=== PATIENT | male | born 1975 | race Caucasian/White ===

== ENCOUNTER → 2016-11-19 | Outpatient (CLI) | payer BC ==
--- NOTE | 2016-11-19 16:00 | RAD ---
3 views right foot 11/19/2016 2:00 AM Indication: RIGHT 5TH TOE INJURY X 1 1/2 WKS, FELL DOWN STEPS Comparison: None Findings: There is a subtle horizontal lucency extending through the base of the fifth proximal phalanx consistent with a nondisplaced fracture. Correlate with point tenderness. No dislocation is seen. Overlying soft tissue edema appears to be present. Impression: Nondisplaced fracture at the base of the fifth proximal phalanx
== END | disposition home or self-care (01) ==
LOC: DXRADRC 14:52
PROVIDERS: ATTEND Physician Assistant
DX: S92.514A Nondisplaced fracture of proximal phalanx of right lesser toe(s), initial encounter for closed fracture (principal); W19.XXXA Unspecified fall, initial encounter; Y93.89 Activity, other specified; Y92.89 Other specified places as the place of occurrence of the external cause; Y99.8 Other external cause status
CPT/HCPCS: 73660

== ENCOUNTER 2020-01-31 19:41 | Emergency (ER) | payer BC, OTHER ==
[~2020-01-31] VITALS: Ht 180.3 cm; Wt 114.6 kg
[2020-01-31 21:10] VITALS: BP 139/63
--- NOTE | 2020-01-31 21:10 | PHYS DOC ---
Past History Past Medical History: Anxiety (RADHA BURROWS APRN) Past Surgical History: Other Additional Past Surgical Histo: LEFT KNEE (RADHA BURROWS APRN) Alcohol Use: None (RADHA BURROWS APRN) Adult General Chief Complaint Chief Complaint: ANXIETY/PANIC ATTACK HPI HPI Patient is a 44-year-old male who presents emergency department with concerns of an anxiety attack he had 1 hour ago which produced a fast heart rate. Patient states that he had a recent break-up of a 4-year relationship. Patient states that this anxiety panic attack is most likely related to this break-up. Patient states that he had an anxiety and panic attack years ago however is not treated by any physician nor does he take any medications nor does he feel like he has needed to up until this point. Patient states that he has a [id number] history of smoking cigarettes and has quit 6 months ago, currently vapes for the past 6 months. Patient denies illicit drug use stating that he smoked some marijuana back in high school however does not smoke any marijuana denies any methamphetamine use denies any cocaine use states he is an occasional drinker however has not had any alcohol for quite some time. Patient states that he feels his heart beating really fast, he did denies any chest pains or shortness of breath or chest discomfort. Patient denies any fever chills, nasal congestion, cough, shortness of breath, abdominal pains, abdominal symptoms, urinary symptoms, back pains or pain in his joints. Patient denies any skin rashes, headaches, focal weaknesses or sensory changes. Patient denies any increased thirst or increased urination, denies swelling of his glands, denies homicidal or suicidal ideation. (RADHA BURROWS APRN) Review of Systems Review of Systems Constitutional: Denies fever or chills Eyes: Denies change in visual acuity, redness, or eye pain HENT: Denies nasal congestion or sore throat Respiratory: Denies cough or shortness of breath Cardiovascular: Denies chest pains, however complains of rapid heart rate just prior to arrival that resolved upon arrival to the emergency department today. GI: Denies abdominal pain, nausea, vomiting, bloody stools or diarrhea : Denies dysuria or hematuria Musculoskeletal: Denies back pain or joint pain Integument: Denies rash or skin lesions Neurologic: Denies headache, focal weakness or sensory changes Endocrine: Denies polyuria or polydipsia Psychiatric: Denies homicidal or suicidal ideations, complained of anxiety attack with possibly some depression related to a recent break-up of a 4-year relationship. All other systems were reviewed and found to be within normal limits, except as documented in this note. (RADHA BURROWS APRN) Current Medications Current Medications Patient denies taking medications at home. (RADHA BURROWS APRN) Allergies Allergies Allergies Coded Allergies Type Severity Reaction Last Updated Verified No Known Drug Allergies 01/31/20 No (RADHA BURROWS APRN) Physical Exam Physical Exam Constitutional: Well developed, well nourished, no acute distress, non-toxic appearance. HENT: Normocephalic, atraumatic, bilateral external ears normal, oropharynx moist, no oral exudates, nose normal. Eyes: PERRLA, EOMI, conjunctiva normal, no discharge. Neck: Normal range of motion, no tenderness, supple, no stridor. Cardiovascular:Heart rate regular rhythm, no murmur, heart sounds S1-S2 to auscultation. Lungs & Thorax: Bilateral breath sounds clear to auscultation all lung ball. Abdomen: Bowel sounds normal, soft, no tenderness, no masses, no pulsatile masses. Skin: Warm, dry, no erythema, no rash. Back: No tenderness, no CVA tenderness. Extremities: No tenderness, no cyanosis, no clubbing, ROM intact, no edema. Neurologic: Alert and oriented X 3, normal motor function, normal sensory fu nction, no focal deficits noted. Psychologic: Affect normal, judgement normal, mood normal. (RADHA BURROWS APRN) Current Patient Data Vital Signs Vital Signs Date Time Temp Pulse Resp B/P (MAP) Pulse Ox O2 Delivery O2 Flow Rate FiO2 01/31/20 19:50 97.9 87 20 147/81 (103) 98 Room Air Lab Results Laboratory Tests Test 01/31/20 20:08 Troponin I Quantitative < 0.017 ng/mL (0-0.055) (RADHA BURROWS APRN) EKG EKG EKG performed at 2026 by house respiratory therapist, shows heart rate 77 bpm normal sinus rhythm without ectopy, NE interval 0. 182, QTc interval 0.430, no acute STEMI, no acute coronary syndrome, no acute ischemia noted, EKG interpreted by ED attending Dr. Russell. (RADHA BURROWS APRN) Radiology/Procedures Radiology/Procedures [] (RADHA BURROWS APRN) Heart Score Risk Factors: Risk Factors: DM, Current or recent (<one month) smoker, HTN, HLP, family history of CAD, obesity. Risk Scores: Risk Factors: DM, Current or recent (<one month) smoker, HTN, HLP, family history of CAD, obesity. (RADHA BURROWS APRN) Course & Med Decision Making Course & Med Decision Making Pertinent Labs and Imaging studies reviewed. (See chart for details) 44-year-old male patient presented to the emergency department complaining of anxiety panic attack that he experienced at home. Patient states that he had a recent break-up of a 4-year relationship that has been really bothering him lately. Patient denies any homicidal or suicidal ideations, patient states that he felt his heart rate racing, patient states that normally it would not bother him but he is now 44 years old and has smoked for the past 20 years although he recently quit smoking and currently vapes over the past 6 months. Patient does deny any stimulant abuse, any illicit drug use, states that he only drinks occasionally on the weekends with friends. The patient's vital signs were normal, the patient's symptoms had resolved prior to his arrival to the ER today. Related to the patient's past medical history of smoking for 20 years, has not seen a doctor for this time, a EKG and troponin were ordered. The EKG was read by ER attending Dr. Russell, was negative for acute process. The patient's troponin I was negative for acute process. Discussed findings with patient and upon reevaluation patient remained calm cooperative and complaint free. Patient gave verbal understanding of discharge instructions, strict return to ER concerns, follow-up with primary care physician soon, patient had no further questions or concerns, patient discharged home without incident. The patient's complained symptoms were most likely an acute anxiety/panic attack related to his recent break-up of his 4-year relationship and unlikely a physical cardiac problem. (RADHA BURROWS APRN) Course & Med Decision Making I discussed and oversaw care of patient with AD CLERK. I agree to note and plan as stated. Patient well appearing, asymptomatic, and fit for discharge home with close outpatient PCP follow-up (VERNON RUSSELL Disclaimer Libby Disclaimer This electronic medical record was generated, in whole or in part, using a voice recognition dictation system. (RADHA BURROWS APRN) Departure Departure: Impression: Primary Impression: Anxiety as acute reaction to exceptional stress Additional Impression: Feared condition not demonstrated Disposition: 01 DC HOME SELF CARE/HOMELESS Condition: GOOD Referrals: PCP,NO (PCP) Patient Instructions: Anxiety and Panic Attacks Additional Instructions: We did an evaluation of your heart today in the emergency department there was no findings suggestive of a heart attack or abnormalities that would require admission to the hospital. Please return to the emergency department for worsening symptoms or further concerns.EMERGENCY DEPARTMENT GENERAL DISCHARGE INSTRUCTIONS Thank you for coming to [facility] (ED) today and trusting us with you care. We trust that you had a positivie experience in our Emergency Department. If you wish to speak to the department management, you may call the director at [phone]. YOUR FOLLOW UP INSTRUCTIONS ARE FOLLOWS: 1. Do you have a private Doctor? If you do not have a private doctor, please ask for a resource list of physicians or clinics that may be able to assist you with follow up care. 2. The Emergency Physician has interpreted your x-rays. The X-Ray specialist will also review them. If there is a change in the findings, you will be notified in 48 hours when at all possible. 3. A lab test or culture has been done, your results will be reviewed and you will be notified if you need a change in treatment. ADDITIONAL INSTRUCTIONS AND INFORMATION: 1. Your care today has been supervised by a physician who is specially trained in emergency care. Many problems require more than one evaluation for a complete diagnosis and treatment. We recommend that you schedule your follow up appointment as recommended to ensure complete treatment of you illness or injury. If you are unable to obtain follow up care and continue to have a problem, or if your condition worsens, we recommend that you return to the ED. 2. We are not able to safely determine your condition over the phone nor are we able to give sound medical advice over the phone. For these safety reasons, if you call for medical advice we will ask you to come to the ED for further evaluation. 3. If you have any questions regarding these discharge instructions please call the ED at [phone]. SAFETY INFORMATION: In the interest of safety, wellness, and injury prevention; we encourage you to wear your sealbelt, if you smoke; quite smoking, and we encourage family to use a protective helmet for bicycling and other sporting events that present an increased risk for head injury. IF YOUR SYMPTOMS WORSEN OR NEW SYMPTOMS DEVELOP, OR YOU HAVE CONCERNS ABOUT YOUR CONDITION; OR IF YOUR CONDITION WORSENS WHILE YOU ARE WAITING FOR YOUR FOLLOW UP APPOINTMENT; EITHER CONTACT YOUR PRIMARY CARE DOCTOR, THE PHYSICIAN WHOSE NAME AND NUMBER YOU WERE GIVEN, OR RETURN TO THE ED IMMEDIATELY. Problem Qualifiers RADHA BURROWS APRN Jan 31, 2020 21:10 VERNON RUSSELL DO Feb 01, 2020 20:58
--- NOTE | 2020-02-01 11:01 | EKG ---
[address] [id number] Test Date: 2020-01-31 Test Time: 20:27:40 Pat Name: COLBY BLACK Department: Room: Gender: M [employer]: : [id number] Requested By: RADHA BURROWS Order Number: [id number] Reading MD: Willie Quijano MD Measurements Intervals [place] Rate: 77 P: 34 UT: 182 QRS: -2 QRSD: 102 T: 16 QT: 378 QTc: 430 Interpretive Statements SINUS RHYTHM Electronically Signed On 02-01-2020 11:00:57 [employer]MENT [employer] by Willie Quijano MD
== END 2020-01-31 21:15 | disposition home or self-care (01) ==
LOC: ER 19:41
DX: F41.8 Other specified anxiety disorders (principal); F43.9 Reaction to severe stress, unspecified; Z71.1 Person with feared health complaint in whom no diagnosis is made
CPT/HCPCS: 36415; 84484; 93005; 99284